=== PATIENT | male | born 1945 | race Caucasian/White ===

== ENCOUNTER 2020-03-13 23:22 | Inpatient (IN) | payer MEDICARE ==
[~2020-03-13] VITALS: Ht 182.9 cm; Wt 80.7 kg
[~2020-03-13 23:22] MED LIST: ALBIPROI INH; ALBU90OI INH; AMOCLA875 PO; AZIT250 PO; CEPH500 PO; CHLGLU.12S MT; CIPR500 PO; CODGUAEL PO; HYDACE5 PO; NO MEDS; PENVK500 PO; PRED20 PO; PROM25 PO; RXHYDACE PO; RXHYDGUAS PO; RXPROM25 PO; Tylenol325 MG PO
--- NOTE | 2020-03-14 06:42 | NUR ---
SHIFT SUMMARY S/P GLF W/ FACIAL LACERATIONS, A/O X4, VSS, NPO T/O SHIFT, REPORTS NEEDING TO VOID BUT UNABLE SO FAR (WILL BLADDER SCAN AFTER PT REQUESTED ONE MORE TRY), NO BM THIS SHIFT BUT ONLY ON THE FLOOR FOR A FEW HOURS, UNSTABLE ON FEET, PT HAS OCCASIONAL TREMORS IN BLE, NEW ONSET NUMBNESS BLE & BUE, PT REPORTS BLE NUMBNESS IMPROVING, C-COLAR IN PLACE DUE TO NEW ONSET NUMBNESS (DR LIMA). DENIES PAIN, WAITING ON ORDERS FOR MEDS/FLUIDS. CALL LIGHT IN REACH, WILL CONTINUE TO MONITOR AND REPORT TO ONCOMING DAY RN.
--- NOTE | 2020-03-14 11:57 | NUR ---
PT TO MRI HAD DIFFICULTY SITTING UP. DID NOT STAND UP STRAIGHT TO TRANSFER FROM BED TO .
--- NOTE | 2020-03-14 13:21 | NUR ---
Patient is lying in bed and alert. Patient talks about his fall, his medical issues and the care plans moving forward. Patient talks about his poor experiences in [employer] and states that even though he does not attend scientologist he has a strong belief in God and the Bible. He then shares about the of his in 2017 and how much he misses her daily. Patient is inspired by his [place] and his pit bull, Anabel and of course his family. I normalize patient's experience, reinforce helpful attitudes and practices and provide grief support, spiritual guidance and prayer. Patient responds well and shows signs of restored modesta and being comforted. I will continue to remain availbale to patient and family.
--- NOTE | 2020-03-14 14:00 | NUR ---
DR MONROE IN TO SEE PT. REMOVED C COLLAR. PLAN TO STAY THROUGH NIGHT.
--- NOTE | 2020-03-14 15:02 | NUR ---
THERAPY IN TO SEE PT.
--- NOTE | 2020-03-14 17:11 | NUR ---
SUMMARY NO ACUTE CHANGES THIS SHIFT. PT WORKED W/OT. HAS HAD DIFFICULTY MAINTAINING BALANCE WHILE SITTING UP BUT APPEARED SLIGHTLY IMPROVED THIS AFTERNOON AFTER WORKING WITH THERAPY. THERAPY RECOMMENDED 2 PERSON ASSIST FOR TRANSFERS AND AMBULATION. PT HAS DENIED NEED FOR PAIN MEDS. CALL LIGHT IN REACH.
--- NOTE | 2020-03-15 05:26 | NUR ---
SHIFT SUMMARY S/P GLF W/ FACE LAC & MULTIPLE FACIAL ABRAISIONS, A/O X4, VSS, TOLERATING PO INTAKE, PASSING FLATUS, NO BM THIS SHIFT, VOIDING WELL USING URINAL W/ 1 INCONTINENT VOID, DENIES PAIN T/O SHIFT. CALL LIGHT IN REACH, WILL CONTINUE TO MONITOR AND REPORT TO ONCOMING DAY RN.
[2020-03-15 06:16] LABS: BASOPHILS ABSOLUTE AUTO 0.07 K/mm3 (0.00-0.23); BASOPHILS PERCENT AUTO 1 % (0-2); EOSINOPHILS ABSOLUTE AUTO 0.23 K/mm3 (0.00-0.68); EOSINOPHILS PERCENT AUTO 2 % (0-6); Hematocrit 43.5 % (37.0-53.0); Hemoglobin 14.5 g/dL (13.5-17.5); IMMATURE GRAN ABSOLUTE AUTO 0.03 K/mm3 (0.00-0.10); IMMATURE GRAN PERCENT AUTO 0 % (0-1); LYMPHOCYTES PERCENT AUTO 28 % (21-46); MONOCYTES ABSOLUTE AUTO 1.16 K/mm3 (0.16-1.47); MONOCYTES PERCENT AUTO 12 % (4-13); Mean Corpuscular HGB 30.4 pg (26.0-34.0); Mean Corpuscular HGB Conc 33.3 g/dL (31.5-36.5); Mean Corpuscular Volume 91 fL (80-100); Mean Platelet Volume 9.8 fL (9.1-12.4); NEUTROPHILS PERCENT AUTO 57 % (41-73); Platelet Count 205 K/mm3 (150-400); RDW Coefficient Variation 12.8 % (11.7-14.2); Red Blood Cell Count 4.77 M/mm3 (4.30-5.90); White Blood Cell Count 9.69 K/mm3 (4.00-11.30)
[2020-03-15 06:33] LABS: Alanine Aminotransfer (ALT/SGP 22 U/L (12-78); Albumin, Blood 3.4 g/dL (3.4-5.0); Albumin/Globulin Ratio 0.9 (0.8-1.8); Alk Phos 68 U/L (50-136); Anion Gap 5 mmol/L (6-16); Aspartate Aminotrans (AST/SGOT 21 U/L (12-37); Bilirubin, Total 1.6 mg/dL (0.1-1.0); Blood Urea Nitrogen 18 mg/dL (8-24); Bun/Creatinine Ratio 22.2 (12.0-20.0); CO2, Blood 26 mmol/L (21-32); Calcium, Blood 9.6 mg/dL (8.5-10.1); Chloride, Blood 107 mmol/L (98-108); Creatinine, Blood 0.81 mg/dL (0.60-1.20); Globulin, Blood 3.8 g/dL (2.2-4.0); Glomerular Filtration Rate >60 (60-); Glucose, Blood 109 mg/dL (70-99); Potassium, Blood 4.3 mmol/L (3.5-5.5); Sodium, Blood 138 mmol/L (136-145); Total Protein, Blood 7.2 g/dL (6.4-8.2)
--- NOTE | 2020-03-15 18:19 | NUR ---
SHIFT SUMMARY PT A0X4. VSS. NON SURGICAL. PT WORKED WITH THERAPY TODAY. AMBULATING W/ 1 MIN ASSIST W/ FWW AND GAITBELT. PT DENIES N/T, DIZZINESS AND CHEST PAIN. TOLERATING REG DIET DENIES N/V. DISCHARGE INSTRUCTIONS WAS DISCUSSED WITH THE PATIENT AND A FWW PRESCRIPTION ON HAND WAS ATTACHED WITH THE DISCHARGED PAPERWORK. PT DENIES PAIN T/O SHIFT. NO PAIN MED ADMINSTERED. CALL LIGHT W/IN REACH.
--- NOTE | 2020-03-15 19:51 | NUR ---
DISCHARGE PT DISCHARGE VIA W/C WITH DAUGHTER AND ME. PT AOX4 STABLE. NO ACUTE CHANGES. LUNGS ARE CLEAR. PT DENIES DIZZINESS, H/A, NAUSEA AND VOMITING. PT ALSO DENIES PAIN NUMBNESS AND TINGLING SENSATION. IV WAS DC'C CATH INTACT. DISCHARGE INSTRUCTION WERE DISCUSSED AND PAPERWORK WITH RX ON WHEELCHAIR WAS GIVEN TO PT.
== END 2020-03-15 19:15 | disposition home or self-care (01) | DRG 605 ==
LOC: ER 23:22 → SURS 23:23
PROVIDERS: Emergency Medicine; ADMIT Surgery
PROC: 0HQ0XZZ Repair Scalp Skin, External Approach (ICD-10-PCS; principal; 2020-03-13)
PROC: 3E0234Z Introduction of Serum, Toxoid and Vaccine into Muscle, Percutaneous Approach (ICD-10-PCS; 2020-03-14)
DX: S01.01XA Laceration without foreign body of scalp, initial encounter (principal); W19.XXXA Unspecified fall, initial encounter; Z87.891 Personal history of nicotine dependence; Z23 Encounter for immunization
CPT/HCPCS: 12013; 36415; 70450; 70486; 72125; 72141; 80053; 85025; 90471; 97112; 97116; 97162; 97166; 99285-25; G0378; L0160; Q2038

== ENCOUNTER 2022-01-18 13:10 | Emergency (ER) | payer MEDICARE ==
[~2022-01-18] VITALS: Ht 182.9 cm; Wt 81.7 kg
[2022-01-18 14:31] LABS: Influenza B, PCR NEGATIVE (NEGATIVE); Resp Syncytial Virus, PCR NEGATIVE (NEGATIVE); SARS-Cov-2 (COVID-19) PCR, MMC NEGATIVE (NEGATIVE)
[2022-01-18 16:09] LABS: Influenza A, PCR POSITIVE (NEGATIVE)
== END 2022-01-18 16:42 | disposition home or self-care (01) ==
LOC: ER 13:10
PROVIDERS: Physician Assistant
DX: J10.1 Influenza due to other identified influenza virus with other respiratory manifestations (principal); Z20.822 Contact with and (suspected) exposure to COVID-19; Z87.891 Personal history of nicotine dependence
CPT/HCPCS: 0241U

== ENCOUNTER 2024-04-27 05:14 | Inpatient (IN) | payer MEDICARE ==
[2024-04-27] VITALS (14 sets, daily range): BP systolic 58–140; BP diastolic 35–59
[~2024-04-27] VITALS: Ht 180.3 cm; Wt 53.4 kg
[2024-04-27] MEDS ORDERED: Midazolam HCl 1MG / ML 2ML Vial IV ONE (05:20)
[2024-04-27] MEDS ORDERED: Lactated Ringer's 1,000 ML IV ONE ×2 (05:35→06:21)
[2024-04-27 05:36] LABS: PCO2 Arterial 43.7 mmHg (35-45); PO2 Arterial 424 mmHg (80-100)
[2024-04-27 05:37] LABS: pH Blood Arterial 6.96 (7.35-7.45)
[2024-04-27 05:40] LABS: BASOPHILS ABSOLUTE AUTO 0.03 K/mm3 (0.00-0.23); BASOPHILS PERCENT AUTO 1 % (0-2); EOSINOPHILS PERCENT AUTO 0 % (0-6); Hemoglobin 13.9 g/dL (13.5-17.5); IMMATURE GRAN ABSOLUTE AUTO 0.27 K/mm3 (0.00-0.10); IMMATURE GRAN PERCENT AUTO 4 % (0-1); LYMPHOCYTES ABSOLUTE AUTO 0.61 K/mm3 (0.84-5.20); LYMPHOCYTES PERCENT AUTO 10 % (21-46); MONOCYTES ABSOLUTE AUTO 0.35 K/mm3 (0.16-1.47); MONOCYTES PERCENT AUTO 6 % (4-13); Mean Corpuscular HGB 30.4 pg (26.0-34.0); Mean Corpuscular HGB Conc 31.6 g/dL (31.5-36.5); Mean Corpuscular Volume 96 fL (80-100); Mean Platelet Volume 11.1 fL (9.1-12.4); NEUTROPHILS ABSOLUTE AUTO 5.14 K/mm3 (1.96-9.15); NEUTROPHILS PERCENT AUTO 80 % (41-73); Platelet Count 201 K/mm3 (150-400); RDW Coefficient Variation 14.3 % (11.7-14.2); RDW Standard Deviation 50.7 fL (35.1-46.3); Red Blood Cell Count 4.57 M/mm3 (4.30-5.90)
[2024-04-27] MEDS ORDERED: Sodium Bicarb 8.4% 1 MEQ/ML 50 ML Vial IV ONE (05:40)
[2024-04-27 06:00] LABS: Magnesium, Blood 3.5 mg/dL (1.6-2.4)
[2024-04-27 06:02] LABS: Source, Urine Foley catheter
[2024-04-27 06:04] LABS: Appearance, Urine Cloudy (Clear); Bilirubin, Urine Neg (Neg); Blood, Urine 5+ (Neg); Color, Urine Yellow (P-Yellow); Glucose Qualitative, Urine Neg (Neg); Ketones, Urine 1+ (Neg); Leukocyte Esterase, Urine 3+ (Neg); Nitrite, Urine Pos (Neg); Protein, Urine 3+ (Neg); Urobilinogen, Urine NORM (Normal)
[2024-04-27 06:14] LABS: Bacteria Many /hpf; Red Blood Cells, Urine 50-100 /hpf (0-2); Squamous Epithelial Cells Not Seen /hpf (Few); White Blood Cells, Urine 50-100 /hpf (0-5)
[2024-04-27] MEDS ORDERED: MethylPREDNISolone Sod Succ 125 MG Vial IV ONE (06:15)
[2024-04-27] MEDS ORDERED: Ipratropium/Albuterol SulF 2.5-0.5MG/3 ML Amp INH ONE (06:15)
[2024-04-27] MEDS ORDERED: Albuterol 2.5 MG/3 ML VIAL INH SCH (06:15)
[2024-04-27 06:22] LABS: Albumin/Globulin Ratio 0.4 (0.8-1.8); Bilirubin, Total 2.8 mg/dL (0.1-1.0); Bun/Creatinine Ratio 40.3 (12.0-20.0); Calcium, Blood 10.2 mg/dL (8.5-10.1); Creatinine, Blood 2.78 mg/dL (0.60-1.20); Globulin, Blood 4.8 g/dL (2.2-4.0); Potassium, Blood 4.5 mmol/L (3.5-5.5); Total Protein, Blood 6.8 g/dL (6.4-8.2)
[2024-04-27 06:28] LABS: Calcium, Ionized (POC) 1.12 mmol/L (1.10-1.46); Chloride (POC) 113 mmol/L (98-108); Glucose (ISTAT POC) 105 mg/dL (70-99); Hemoglobin (POC) 11.9 g/dL (13.5-17.5); Potassium (POC) 4.2 mmol/L (3.5-5.5); Sodium (POC) 145 mmol/L (135-148); Total CO2 (POC) 13 mmol/L (21-32)
[2024-04-27 06:34] LABS: Base Excess Venous -21.5 mmol/L; PCO2 Venous 33.8 mmHg (38-42)
[2024-04-27 06:35] LABS: pH Blood Venous 7.04 (7.34-7.37)
[2024-04-27] MEDS ORDERED: Lactulose 20 GM/30 ML UDC PO ONE (06:35)
[2024-04-27] MEDS ORDERED: CefTRIAXone Sodium 1,000 MG in NS 50 ML IV ONE (06:45)
[2024-04-27] MEDS ORDERED: Cefepime HCl 2,000 MG in NS 100 ML IV ONE (06:50)
[2024-04-27] MEDS ORDERED: Doxycycline Hyclate 100 MG TAB PO ONE (06:50)
[2024-04-27] MEDS ORDERED: Ondansetron HCl 2 MG / ML 2ML Vial IV PRN (07:50)
[2024-04-27] MEDS ORDERED: FLU VACC TS2024-25(6MOS UP)/PF 45 MCG/0.5 ML SYRINGE IM SCH (07:50)
[2024-04-27] MEDS ORDERED: Lactated Ringer's 1,000 ML IV SCH (07:50)
--- NOTE | 2024-04-27 08:35 | NUR ---
ARRIVAL TO ICU PT BROUGHT TO ICU AT THIS TIME. HE IS RECEIVING LEVOPHED 2MCG/MIN. HE IS INTUBATED WITH VENT SETTINGS AC./VC 20/350/5/40%. PT IS UNRESPONSIVE. PUPILS FIXED, ABSENT CORNEAL REFLEX. NO COUGH/GAG. LIMBS FLACCID. SINUS ON MONITOR WITH RATE IN 90S. MAP >65 UPON ARRIVAL. OGT TO LIS WITH DARK BROWN LIQUID OUTPUT. TEMP RAMIREZ PATENT AND HAS MINIMAL AMOUNT OF RED/SAM OUTPUT. CORE TEMP 91.7. BARE HUGGER IN PLACE. PT APPEARS CACHEXIC. SIGINIFICANT AMOUNT OF WOUNDS ON EXTREMITIES IN VARYING STATES OF HEALING. MULTIPLE LARGE SORES ON BUTTOCKS/COCCYX AREA WITH BLACK ESCAR. PROVIDER AWARE AND PHOTOS IN CHART. NO FAMILY AT BEDSIDE.
[2024-04-27] MEDS ORDERED: Docusate Sodium 100 MG Cap PO SCH (09:00)
[2024-04-27] MEDS ORDERED: Doxycycline Hyclate 100 MG in Dextrose 5% 250 ML IV SCH (09:00)
[2024-04-27] MEDS ORDERED: Enoxaparin 30 MG/0.3 ML SYR SC SCH (09:00)
[2024-04-27] MEDS ORDERED: Pantoprazole Sodium 40 MG in NS 50 ML IV SCH (09:15)
[2024-04-27] MEDS ORDERED: NS 250 ML IV PRN (09:20)
[2024-04-27] MEDS ORDERED: Pantoprazole Sodium 40 MG Injection IV ONE (10:00)
[2024-04-27] MEDS ORDERED: Vasopressin 20 UNITS in NS 100 ML IV SCH (10:05)
[2024-04-27 10:27] LABS: Adenovirus Not Detected (NOT DETECT); Coronavirus 229E Not Detected (NOT DETECT); Coronavirus HKU1 Not Detected (NOT DETECT); Coronavirus NL63 Not Detected (NOT DETECT); Coronavirus OC43 Not Detected (NOT DETECT)
[2024-04-27 10:28] LABS: Bordetella pertussis Not Detected (NOT DETECT); Chlamydophila pneumoniae Not Detected (NOT DETECT); Human Metapneumovirus Not Detected (NOT DETECT); Human Rhinovirus/Enterovirus Not Detected (NOT DETECT); Influenza A/2009-H1 Not Detected (NOT DETECT); Influenza A/H1 Not Detected (NOT DETECT); Influenza A/H3 Not Detected (NOT DETECT); Influenza B Not Detected (NOT DETECT); Mycoplasma pneumoniae Not Detected (NOT DETECT); Parainfluenza Virus 1 Not Detected (NOT DETECT); Parainfluenza Virus 2 Not Detected (NOT DETECT); Parainfluenza Virus 3 Not Detected (NOT DETECT); Parainfluenza Virus 4 Not Detected (NOT DETECT); Respiratory Syncytial Virus Not Detected (NOT DETECT); SARS-Cov-2 (COVID-19), BioFire Not Detected (NOT DETECT)
--- NOTE | 2024-04-27 10:31 | NUR ---
UPDATE PT'S CORE TEMP INCREASING. NOW AT 95.0. PT BECOMING MORE HYPOTENSIVE. LEVOPHED CURRENTLY AT 12MCG/MIN AND VASOPRESSIN 0.04UNITS/MIN. CURRENT MAP 74. PT DESATURATING TO HIGH 70S, NO ETT SECRETIONS. LADDERMAN AND RT NOTIFIED AND AT BEDSIDE. VENT SETTINGS INCREASED TO AC/VC 26/400/10/100%. SPO2 NOW 87-89%. CHEST XRAY ORDERED. DAUGHTER UPDATED VIA TELEPHONE BY FASHION JOURNALIST AND WILL ARRIVE IN APPROX 1HR.
--- NOTE | 2024-04-27 11:08 | NUR ---
ETT ADVANCEMENT ETT ADVANCED TO 27CM BY RT POST X-RAY.
[2024-04-27 11:22] LABS: BASOPHILS ABSOLUTE AUTO 0.03 K/mm3 (0.00-0.23); BASOPHILS PERCENT AUTO 0 % (0-2); EOSINOPHILS PERCENT AUTO 0 % (0-6); Hematocrit 38.9 % (37.0-53.0); Hemoglobin 12.6 g/dL (13.5-17.5); IMMATURE GRAN ABSOLUTE AUTO 0.18 K/mm3 (0.00-0.10); IMMATURE GRAN PERCENT AUTO 2 % (0-1); LYMPHOCYTES ABSOLUTE AUTO 0.42 K/mm3 (0.84-5.20); LYMPHOCYTES PERCENT AUTO 5 % (21-46); MONOCYTES ABSOLUTE AUTO 0.29 K/mm3 (0.16-1.47); MONOCYTES PERCENT AUTO 3 % (4-13); Mean Corpuscular HGB 30.4 pg (26.0-34.0); Mean Corpuscular HGB Conc 32.4 g/dL (31.5-36.5); Mean Corpuscular Volume 94 fL (80-100); Mean Platelet Volume 10.9 fL (9.1-12.4); NEUTROPHILS ABSOLUTE AUTO 7.98 K/mm3 (1.96-9.15); NEUTROPHILS PERCENT AUTO 90 % (41-73); Platelet Count 159 K/mm3 (150-400); RDW Coefficient Variation 14.5 % (11.7-14.2); Red Blood Cell Count 4.14 M/mm3 (4.30-5.90)
--- NOTE | 2024-04-27 11:47 | NUR ---
UPDATE PT'S DAUGHTER TERA, PT'S SON IN LAW AND FRIEND AT BEDSIDE AND UPDATED. PLAN TO TRANSITION TO COMFORT CARE
[2024-04-27] MEDS ORDERED: Atropine Sulfate 1% Opth Soln 2ML BTL SL PRN (11:50)
[2024-04-27] MEDS ORDERED: LORazepam 2 MG/ML 1ML Injection IV PRN (11:50)
[2024-04-27] MEDS ORDERED: Morphine Sulfate 20 MG/1ML 1 ML Oral Syringe SL PRN (11:50)
[2024-04-27] MEDS ORDERED: LORazepam 1 MG Tab PO PRN (11:50)
[2024-04-27] MEDS ORDERED: Scopolamine Hydrobromide Patch TOP PRN (11:50)
[2024-04-27] MEDS ORDERED: Morphine Sulfate 10 MG/ML 1MLSYR IV PRN (11:50)
--- NOTE | 2024-04-27 11:52 | NUR ---
MET WITH PT'S DAUGHTER AT BEDSIDE ALONG WITH DR. BOB. DAUGHTER AGREES WITH COMFORT CARE. PT'S CONDITION IS DETERIORATING. CLIENT ANALYST ALSO AT BEDSIDE, ALONG WITH 2 FRIENDS OF DAUGHTER. COMFORT ORDERS PLACE, PT TO BE EXTUBATED.
--- NOTE | 2024-04-27 11:59 | NUR ---
"Spiritual Care Support | Comfort Care and EOL Decisions Pt. is intubated and is not responsive. Family is present and grieving as they are meeting with Doctor and nurse to make a comfort care decision. Daughter is unable to be present with the Pt. Daughter verbalizes her experience in losing her mom, which she concluded is why her father did not want to see doctors for himself. Listen with empathy and a calming presence. After the family made the comfort care decision, this farmer and grazier prayed with the Pt. at bedside. Afterward daughter verbalized that the Pt. had made arrangements with [facility]. [facility] should be call after the Pt. passes per hospital protocol. This farmer and grazier will remain available for the Pt. and family."
--- NOTE | 2024-04-27 12:50 | NUR ---
COMFORT CARE/TOD PT TRANSITIONED TO COMFORT CARE. MEDICATED PER EMAR. EXTUBATED AT 1225. SON IN LAW AND FRIEND AT BEDSIDE. DAUGHTER IN WAITING AREA. TIME OF 1250.
--- NOTE | 2024-04-27 13:18 | NUR ---
PC NOTE PT LIBERATED FROM VENTILATOR TUBE. CLINICAL PROGRAM CONSULTANT ALSO PRESENT. PROVIDED EMOTIONAL AND MORAL SUPPORT TO DAUGHTER MARISOL, AND SPOUSE AND HER FRIEND WHO WAS PRESENT. DAUGHTER MARISOL SHOWED SIGNS OF EMOTIONAL DISTRESS AND WAS CRYING, UNABLE TO BE PRESENT AT TIME OF LIBERATION. STAYED WITH HER AND UPDATED HER WHEN PT PASSED. PROVIDED POST MORTEM INSTRUCTIONS. UPDATED CLINICAL PROGRAM CONSULTANT WHEN FAMILY WOULD BE READY TO RELEASE PT TO CARE OF HOME.
--- NOTE | 2024-04-27 13:35 | NUR ---
"Spiritual Care | EOL Care After extubation gathered familiy members present. Scripture is read, and blessing for the Pt. and family is given. Facilited life review as the Pt. declined. After Pt. passed, escorted family out. Family verbalized that they would return shortly to retrieve the Pts. belongings. [facility] is the chosen home."
[2024-04-27] MEDS ORDERED: EPINEPhrine HCl 0.1 MG/ML 10ML SYR IV ONE (14:42)
[2024-04-28] MEDS ORDERED: Cefepime HCl 500 MG in NS 100 ML IV SCH (09:00)
== END 2024-04-27 16:11 | DRG 871 ==
LOC: ER 05:14 → ICUE 07:47
PROVIDERS: Internal Medicine Critical Care Medicine; Student in an Organized Health Care Education/Training Program; ADMIT Internal Medicine
PROC: 5A1935Z Respiratory Ventilation, Less than 24 Consecutive Hours (ICD-10-PCS; principal; 2024-04-27)
PROC: 4A033R1 Measurement of Arterial Saturation, Peripheral, Percutaneous Approach (ICD-10-PCS; 2024-04-27)
PROC: 0T9B70Z Drainage of Bladder with Drainage Device, Via Natural or Artificial Opening (ICD-10-PCS; 2024-04-27)
PROC: 3E033XZ Introduction of Vasopressor into Peripheral Vein, Percutaneous Approach (ICD-10-PCS; 2024-04-27)
PROC: 3E03329 Introduction of Other Anti-infective into Peripheral Vein, Percutaneous Approach (ICD-10-PCS; 2024-04-27)
DX: A41.9 Sepsis, unspecified organism (principal); G92.8 Other toxic encephalopathy; J18.9 Pneumonia, unspecified organism; R65.21 Severe sepsis with septic shock; J96.01 Acute respiratory failure with hypoxia; K72.00 Acute and subacute hepatic failure without coma; N39.0 Urinary tract infection, site not specified; Z51.5 Encounter for palliative care; Z66 Do not resuscitate; E87.4 Mixed disorder of acid-base balance; E72.20 Disorder of urea cycle metabolism, unspecified; R64 Cachexia; K92.2 Gastrointestinal hemorrhage, unspecified; N17.9 Acute kidney failure, unspecified; J44.1 Chronic obstructive pulmonary disease with (acute) exacerbation; J44.0 Chronic obstructive pulmonary disease with (acute) lower respiratory infection; Z68.1 Body mass index [BMI] 19.9 or less, adult; L89.150 Pressure ulcer of sacral region, unstageable; E86.1 Hypovolemia; Z87.891 Personal history of nicotine dependence
CPT/HCPCS: 0202U; 31500; 36415; 36600; 51702; 70450; 71045; 71260; 80047; 80053; 81001; 82140; 82803; 83605; 83735; 85014; 85025; 87077; 87086; 87186; 94002; 94644; 94645; 94664; 96361-59; 96365-59; 96367-59; 96375-59; 99285-25; A9270; J0692; J2060; J2270; J2470; J2919; J7050; J7060; J7120; Q9967